=== PATIENT | female | born 1955 | race Caucasian/White ===

== ENCOUNTER 2021-02-01 06:00 | Day surgery (SDC) | payer OTHER, SELFPAY ==
[2021-01-31 16:00] LABS: BASOPHILS % (AUTO) 0.3 % (0.0-2.0); EOSINOPHILS # (AUTO) 0.1 K/uL (0.0-0.4); EOSINOPHILS % (AUTO) 1.7 % (0.0-4.0); HEMATOCRIT 33.5 % (36-48); HEMOGLOBIN 11.1 g/dL (12.0-16.0); LYMPHOCYTES % (AUTO) 43.1 % (20.5-51.5); MEAN CORPUSCULAR HEMOGLOBIN 31 pg (27-31); MEAN CORPUSCULAR HGB CONC 33 % (32-36); MEAN CORPUSCULAR VOLUME 94 fL (79.0-98.0); MONOCYTES # (AUTO) 0.5 K/uL (0.0-1.0); MONOCYTES % (AUTO) 6.8 % (1.7-9.3); NEUTROPHILS # (AUTO) 3.4 K/uL (1.8-7.7); NEUTROPHILS % (AUTO) 48.1 % (40.0-70.0); PLATELET COUNT (AUTO) 171 K/uL (130-430); RED BLOOD CELL COUNT(AUTO) 3.55 MIL/uL (4.2-6.2); RED CELL DISTRIBUTION WIDTH 12.9 % (9.0-15.0)
[2021-01-31 16:13] LABS: CALCIUM 9.1 mg/dL (8.4-11.0); CREATININE 0.84 mg/dL (0.55-1.30); POTASSIUM 4.7 mmol/L (3.5-5.1)
[2021-01-31 16:32] LABS: INR 0.9 (0.8-1.2); PROTHROMBIN TIME 9.4 SECS (9.5-12.5)
[~2021-02-01] VITALS: Ht 167.6 cm; Wt 93.0 kg
[2021-02-01] MEDS ORDERED: CEFAZOLIN SOD 2 GM in D5W 50 ML IV ONE (07:00)
[2021-02-01] MEDS ORDERED: DEXTROSE 50% JECT 50 ML DISP.SYRIN IVP ONE (07:45)
[2021-02-01] MEDS ORDERED: MEPERIDINE HCL/PF 100 MG/ML VIAL IM ONE (08:15)
[2021-02-01] MEDS ORDERED: KETOROLAC TROMETHAMINE 30 MG VIAL IVP ONE (08:15)
[2021-02-01] MEDS ORDERED: EPINEPHrine 1 MG/ML AMP IM ONE (08:15)
[2021-02-01] MEDS ORDERED: NS 1000 ML IV.SOLN IV ONE (08:15)
[2021-02-01] MEDS ORDERED: SEVOFLURANE 15 MIN GAS INH ONE (08:15)
[2021-02-01] MEDS ORDERED: DEXAMETHASONE SOD PHOSPHATE 4 MG/ML VIAL IVP ONE (08:15)
[2021-02-01] MEDS ORDERED: LR 1,000 ML IV.SOLN IV ONE (08:15)
[2021-02-01] MEDS ORDERED: PROPOFOL 200MG/ 20ML VIAL (DIPRIVAN) IV ONE (08:15)
[2021-02-01] MEDS ORDERED: ROPIVACAINE 40 MG/20 ML AMP EP ONE (08:15)
[2021-02-01] MEDS ORDERED: ONDANSETRON HCL 4 MG/2 ML VIAL IVP PRN (09:15)
[2021-02-01] MEDS ORDERED: LR 1,000 ML IV SCH (09:15)
[2021-02-01] MEDS ORDERED: MEPERIDINE HCL/PF 25 MG/ML DISP.SYRIN IVP PRN (09:15)
[2021-02-01] MEDS ORDERED: METOCLOPRAMIDE HCL 10 MG/2 ML VIAL IVP PRN (09:15)
[2021-02-01] MEDS ORDERED: HYDROmorphone 1 INJ. 1 MG/ML CARTRIDGE IVP PRN (09:15)
[2021-02-01] MEDS: HYDROmorphone 1 INJ. 1 MG/ML CARTRIDGE IVP PRN ×2 (10:22→10:37)
[2021-02-01] MEDS ORDERED: HYDROmorphone 1 INJ. 1 MG/ML CARTRIDGE ONE (10:26)
[2021-02-01 11:35] VITALS: BP_SYST 139
== END 2021-02-01 11:40 | disposition home or self-care (01) ==
LOC: SDS 06:00 → SMU 06:00 → SDS 11:40
PROVIDERS: ATTEND Orthopaedic Surgery Sports Medicine
DX: M75.02 Adhesive capsulitis of left shoulder (principal); E66.9 Obesity, unspecified; I10 Essential (primary) hypertension; E11.9 Type 2 diabetes mellitus without complications; E78.5 Hyperlipidemia, unspecified; Z79.01 Long term (current) use of anticoagulants; Z79.899 Other long term (current) drug therapy
CPT/HCPCS: 29825; 36415; 71046; 80048; 82962; 85025; 85610; 85730; 86886; 86900; 86901; 87426; A4565; J0171; J0690; J1100; J1170; J1885; J2175; J2704; J2795; J7030; J7060; J7120; 93005